=== PATIENT | female | born 1970 | race Caucasian/White ===

== ENCOUNTER 2017-12-03 02:19 | Emergency (ER) | payer OTHER ==
[2017-12-03] MEDS ORDERED: Nitroglycerin 0.4 MG TAB (25 Tab Bottle) ONE (02:52)
[2017-12-03 03:09] LABS: CK (CPK) 62 U/L (29-168); Lipase 7 U/L (8-78)
[2017-12-03 03:11] LABS: CKMB 0.6 ng/mL (0-6.6); Troponin I Less than 0.010 ng/mL (< 0.028)
[2017-12-03 03:15] LABS: ALT (SGPT) 26 U/L (8-55); AST (SGOT) 27 U/L (5-34); Albumin 3.9 g/dL (3.5-5.0); Alkaline Phosphatase 74 U/L (40-150); Anion Gap 16 mmol/L (10-20); BUN (Urea Nitrogen) 13 mg/dL (7.0-18.7); Bilirubin, Total 0.3 mg/dL (0.2-1.2); Calc. Creatinine Clearance 0 mL/min (70-130); Calcium 9.3 mg/dL (7.8-10.44); Carbon Dioxide 21 mmol/L (22-29); Chloride 108 mmol/L (98-107); Estimated GFR-MDRD 78; Globulin 2.6 g/dL (2.4-3.5); Glucose 98 mg/dL (70-105); Potassium 3.7 mmol/L (3.5-5.1); Protein, Total 6.5 g/dL (6.0-8.3); Sodium 141 mmol/L (136-145)
[2017-12-03 03:19] LABS: Hemoglobin 13.7 g/dL (12.0-16.0); Manual Diff?? YES; Mean Corpuscular HGB CONC 33.5 g/dL (32.0-36.0); Mean Corpuscular Hemoglobin 31.1 pg (27.0-31.0); Mean Corpuscular Volume 92.8 fL (78.0-98.0); Mean Platelet Volume 8.2 fL (7.4-10.4); Platelet Count 245 thou/uL (130-400); RBC Distribution Width 11.3 % (11.5-14.5); Red Blood Cell (RBC) Count 4.42 mill/uL (4.20-5.40); White Blood Cell (WBC) Count 10.1 thou/uL (4.8-10.8)
[2017-12-03 03:20] LABS: Band 7 % (5-11); Lymphocytes 32 % (21-51); Monocytes 6 % (0-10); Neutrophil 53 % (42-75)
[2017-12-03 03:21] LABS: Eosinophils 1 % (0-10)
[2017-12-03 03:22] LABS: MDiff Complete? YES; PLT Morphology Comment Appears Adequate; RBC Morphology Normal
[2017-12-03] MEDS ORDERED: Ondansetron HCl/PF 4 MG/2 ML Vial ONE (03:41)
--- NOTE | 2017-12-03 07:02 | RAD ---
PORTABLE CHEST: Date: 12/03/17 Comparison made with the 09/27/09 study. Cardiac size has not really changed much in the interval. It is within normal limits for portable vicki m and body habitus. There is no congestive change or pleural effusion. No focal pulmonary infiltrates are seen. Trachea is midline. IMPRESSION: No acute thoracic findings. POS: HOME
== END 2017-12-03 03:50 | disposition short-term general hospital (02) ==
LOC: BURERS 02:19
DX: R07.2 Precordial pain (principal); F41.9 Anxiety disorder, unspecified; F32.9 Major depressive disorder, single episode, unspecified; K21.9 Gastro-esophageal reflux disease without esophagitis; E78.5 Hyperlipidemia, unspecified; I10 Essential (primary) hypertension; J45.909 Unspecified asthma, uncomplicated; Z79.899 Other long term (current) drug therapy
CPT/HCPCS: 71045; 80053; 82550; 82553; 83690; 83880; 84484; 85025; 85379; 93005; 94760; 96374; J2405